=== PATIENT | male | born 2000 | race Caucasian/White ===

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

== ENCOUNTER → 2020-09-26 | Outpatient (CLI) | payer BC, OTHER ==
--- NOTE | 2020-10-04 16:34 | REP ---
INDICATION: S61.202A UNSP OPEN WOUND OF R MID FINGER W/O DAMAGE TO NAIL. COMPARISON: None. TECHNIQUE: Four views 3rd digit right hand FINDINGS: There is no acute fracture or destructive osseous lesion. IMPRESSION: Negative exam <Electronically signed by Pierre Grewal > 10/04/20 [id number]
== END ==
LOC: M WUC 14:44
PROVIDERS: ATTEND Physician Assistant
DX: S61.202A Unspecified open wound of right middle finger without damage to nail, initial encounter (principal); X58.XXXD Exposure to other specified factors, subsequent encounter; Y92.9 Unspecified place or not applicable; Y93.9 Activity, unspecified; Y99.9 Unspecified external cause status